=== PATIENT | female | born 1950 | race Caucasian/White ===

== ENCOUNTER 2020-11-27 09:24 | Day surgery (SDC) | payer MEDICARE, OTHER ==
[2020-11-27] MEDS ORDERED: Dextrose 5%-Lactated Ringers 1,000 ML IV SCH (10:00)
[2020-11-27] MEDS ORDERED: fentaNYL 100 MCG/2 ML SDV ONE (10:29)
[2020-11-27] MEDS ORDERED: Midazolam 1 MG/ML 2 ML SDV ONE (10:29)
[2020-11-27] MEDS ORDERED: Propofol 200 MG/20 ML SDV ONE (10:29)
--- NOTE | 2020-12-09 11:38 | OR ---
DATE OF PROCEDURE: 11/27/2020 SURGEON: Mik Solomon MD PREOPERATIVE DIAGNOSIS: Personal history of colon polyps. POSTOPERATIVE DIAGNOSES: 1. No recurrent colon polyps. 2. Scattered uncomplicated left colonic diverticulosis. OPERATIVE PROCEDURE: Flexible colonoscopy. ANESTHESIA: IV sedation. INDICATIONS FOR PROCEDURE: A 70-year-old female presenting for followup colonoscopy. She has history of previous colon polyps. Plan is to proceed with a colonoscopy with biopsies and/or polypectomy as indicated. Potential risks including bleeding and perforation were discussed, and the patient wishes to proceed. DETAILS OF PROCEDURE: The patient was taken to the operating room, placed in a left lateral decubitus position. IV sedation was administered, after which the initial digital rectal exam was performed and was unremarkable. Colonoscope was then passed into the rectum with retroflexion revealing uncomplicated hemorrhoidal columns. Scope was eventually passed to the level of the cecum. The prep was quite good. Only small amount of liquid stool is present. The patient had some left colonic diverticulosis which was otherwise uncomplicated. Otherwise, there were no areas of colitis and no polyps or other signs of neoplasia. Scope was then withdrawn and the above findings reconfirmed, and the procedure was concluded. The patient was taken to the recovery room in satisfactory condition. Recommendation would be to repeat the colonoscopy in 5 years. Mik Solomon MD /[id number]
== END 2020-11-27 12:50 | disposition home or self-care (01) ==
LOC: JP.SDS 09:24
PROVIDERS: ATTEND Surgery
DX: K57.30 Diverticulosis of large intestine without perforation or abscess without bleeding (principal); Z86.010 Personal history of colon polyps
CPT/HCPCS: J2250; J2704; J3010; J7121

== ENCOUNTER 2024-07-17 08:19 | Day surgery (SDC) | payer MEDICARE, OTHER ==
[2024-07-17] MEDS ORDERED: Neostigmine Methylsulfate 10 MG/10 ML MDV ONE (08:26)
[2024-07-17] MEDS ORDERED: Glycopyrrolate 0.2 MG/ML 5 ML MDV ONE (08:26)
[2024-07-17] MEDS ORDERED: Propofol 200 MG/20 ML SDV ONE (08:26)
[2024-07-17] MEDS ORDERED: Succinylcholine 200 MG/10 ML MDV ONE (08:26)
[2024-07-17] MEDS ORDERED: Rocuronium 50 MG/5 ML Vial ONE (08:26)
[2024-07-17] MEDS ORDERED: Ondansetron 4 MG/2 ML SDV ONE (08:26)
[2024-07-17] MEDS ORDERED: Dexamethasone 4 MG/ML SDV ONE (08:26)
[2024-07-17] MEDS ORDERED: fentaNYL 250 MCG/5 ML SDV ONE (08:28)
[2024-07-17] MEDS: metroNIDAZOLE/Normal Saline 500 MG in Premix Bag 1 BAG IV ONE (09:32)
[2024-07-17] MEDS: Indocyanine Green 25 MG SDV IV ONE (09:45)
[2024-07-17] MEDS: Lactated Ringers 1,000 ML IV SCH (09:50)
[2024-07-17] MEDS: ceFAZolin 2 GM in Premix Bag 1 BAG IV ONE (09:52)
[2024-07-17] MEDS ORDERED: fentaNYL 100 MCG/2 ML SDV ONE (10:25)
[2024-07-17] MEDS: Bupivacaine 0.5% 50 ML MDV ONE (10:37)
[2024-07-17] MEDS ORDERED: Ketorolac 30 MG/ML SDV ONE (10:37)
[2024-07-17] MEDS: Lidocaine 1% with EPINEPHrine 1:100,000 50 ML MDV ONE (10:38)
== END 2024-07-17 14:40 | disposition home or self-care (01) ==
LOC: JP.SDS 08:19
PROVIDERS: ATTEND Surgery
DX: K80.12 Calculus of gallbladder with acute and chronic cholecystitis without obstruction (principal); K21.9 Gastro-esophageal reflux disease without esophagitis; F41.9 Anxiety disorder, unspecified; Z79.899 Other long term (current) drug therapy; Z88.0 Allergy status to penicillin
CPT/HCPCS: 00790; 47562; 88304; J0171; J0330; J0665; J0690; J1100; J1596; J1836; J1885; J2405; J2704; J2710; J2795; J3010; J3490; J7120

== ENCOUNTER 2025-05-18 10:39 | Emergency (ER) | payer MEDICARE, OTHER ==
[2025-05-18 11:33] LABS: BASOPHILS PERCENT AUTO 0.0 % (0.1-1.3); EOSINOPHILS ABSOLUTE AUTO 0.05 K/uL (0.00-0.40); EOSINOPHILS PERCENT AUTO 1.0 % (0.0-5.4); IMMATURE GRAN PERCENT AUTO 0.4 % (0.0-0.7); LYMPHOCYTES ABSOLUTE AUTO 0.56 K/uL (0.8-3.3); LYMPHOCYTES PERCENT AUTO 11.6 % (11.4-47.7); MONOCYTES ABSOLUTE AUTO 0.32 K/uL (0.20-0.90); MONOCYTES PERCENT AUTO 6.6 % (3.3-12.6); NEUTROPHILS ABSOLUTE AUTO 3.89 K/uL (1.0-7.6); NEUTROPHILS PERCENT AUTO 80.4 % (40.0-78.1); PLATELET COUNT,PLT 159 K/uL (130-375); RED BLOOD CELL COUNT 4.37 M/uL (3.77-5.24); WHITE BLOOD CELL COUNT,WBC 4.8 K/uL (3.2-11.0)
[2025-05-18] MEDS: LORazepam 2 MG/ML SDV IVPUSH ONE (11:37)
[2025-05-18 11:49] LABS: A/G RATIO 1.1 (1.2-2.2); ALANINE AMINOTRANSFERASE,ALT 22 U/L (12-78); ASPARTATE AMNIOTRANSFERASE,AST 24 U/L (15-37); BILIRUBIN TOTAL 0.9 mg/dL (0.2-1.0); BLOOD UREA NITROGEN,BUN 21 mg/dL (7-18); CARBON DIOXIDE,CO2 28 mmol/L (21-32); CHLORIDE,CL 102 mmol/L (100-108); CREATININE 0.6 mg/dL (0.6-1.0); EST CRCL DRUG DOSING (CG) 66.05 mL/min; ESTIMATED GFR 95 mL/min (>60); GLUCOSE RANDOM 126 mg/dL (74-106); POTASSIUM,K 4.0 mmol/L (3.6-5.2); PROTEIN TOTAL,TP 8.5 g/dL (6.4-8.2); SODIUM,NA 142 mmol/L (140-148)
[2025-05-18 11:50] LABS: BASOPHILS ABSOLUTE AUTO 0.00 K/uL (0.00-0.10); IMMATURE GRAN ABSOLUTE AUTO 0.02 K/uL (0.00-0.23)
[2025-05-18] MEDS: Ondansetron 4 MG/2 ML SDV IVPUSH ONE (13:22)
[2025-05-18 15:04] LABS: APPEARANCE,URINE SLIGHTLY CLOUDY (CLEAR); GLUCOSE,URINE NEGATIVE (NEGATIVE); OCCULT BLOOD,URINE NEGATIVE (NEGATIVE)
[2025-05-18 15:19] LABS: SQUAMOUS EPITHELIAL CELLS,UR FEW /HPF; UROTHELIAL CELLS,URINE NOT SEEN /HPF
[2025-05-18] MEDS: Iopamidol 755 Mg/ML 100 ML Bottle IV ONE (19:52)
[2025-05-18] MEDS: Sodium Chloride 0.9% 10 ML Syringe FLUSH ONE (19:52)
== END 2025-05-19 00:30 ==
LOC: JP.ED 10:39
DX: G98.8 Other disorders of nervous system (principal); Z88.0 Allergy status to penicillin; Z88.2 Allergy status to sulfonamides; Z79.899 Other long term (current) drug therapy; Z90.49 Acquired absence of other specified parts of digestive tract
CPT/HCPCS: 36415; 70450; 70496; 70498; 80053; 81001; 85025; 96361; 96374; 99285; A9270; J2060; J7030; Q9967